=== PATIENT | male | born 1995 | race African-American/Black ===

== ENCOUNTER 2025-05-24 03:46 | Inpatient (IN) | payer MEDICAID ==
[~2025-05-24] VITALS: Ht 175.3 cm; Wt 64.4 kg
[2025-05-24] MEDS ORDERED: ZOLPIDEM TARTRATE 10 MG TABLET PO PRN (04:15)
[2025-05-25 17:48] VITALS: BP 129/79; PULSE 66; RESP 16; TEMP 98.5; O2SAT 100
[2025-05-25 20:50] VITALS: RESP 16
[2025-05-25] MEDS ORDERED: DOCUSATE SODIUM 100 MG CAPSULE PO PRN (23:15)
[2025-05-25] MEDS ORDERED: OMEPRAZOLE 20 MG CAPSULE PO PRN (23:15)
[2025-05-25] MEDS ORDERED: MAG HYDROX/ALUMINUM HYD/SIMETH ES 30 ML SUSPENSION UDCUP PO PRN (23:15)
[2025-05-25] MEDS ORDERED: BACITRACIN 28 GM OINTMENT TP PRN (23:15)
[2025-05-25] MEDS ORDERED: ALBUTEROL SULFATE HFA 90 MCG/PUFF 8 GM INHALER IH PRN (23:15)
[2025-05-25] MEDS ORDERED: PETROLATUM,WHITE 28 GM JELLY TP PRN (23:15)
[2025-05-25] MEDS ORDERED: MAGNESIUM HYDROXIDE SUSPENSION 30 ML UDCUP PO PRN (23:15)
[2025-05-25] MEDS ORDERED: ACETAMINOPHEN 325 MG TABLET PO PRN (23:15)
[2025-05-25] MEDS ORDERED: IBUPROFEN 600 MG TABLET PO PRN (23:15)
[2025-05-25] MEDS ORDERED: ONDANSETRON 4 MG TABLET PO PRN (23:15)
[2025-05-25] MEDS ORDERED: BENZOCAINE/MENTHOL [CEPACOL] LOZENGE PO PRN (23:15)
[2025-05-26 08:09] VITALS: RESP 18
[2025-05-26] MEDS: SERTRALINE HCL 50 MG TABLET PO SCH (10:08)
[2025-05-26 20:11] VITALS: RESP 18
[2025-05-27] MEDS: LOPERAMIDE HCL 2 MG CAPSULE PO PRN (06:25)
[2025-05-27 08:10] VITALS: RESP 16
[2025-05-27 08:20] LABS: PLATELET COUNT (AUTO) 152 K/uL (150-450); RED BLOOD CELL COUNT(AUTO) 4.86 MIL/uL (4.50-5.90); RED CELL DISTRIBUTION WIDTH 14.0 % (11.5-14.5); WHITE BLOOD COUNT (AUTO) 2.8 K/uL (4.5-11.0)
[2025-05-27 08:41] LABS: ASPARTATE AMINOTRANSFERASE 15 U/L (15-37); CALCIUM, TOTAL 9.7 mg/dL (8.8-10.5); CHOL/HDL RATIO 3.7 (4.2-7.3); CREATININE 0.91 mg/dL (0.60-1.30); GLOMERULAR FILTR. RATE CALC > 60 mL/min (>60); GLUCOSE,RANDOM 118 mg/dL (70-110); LDL CHOL (CALC.) 110 mg/dL (0-130); PHOSPHORUS 3.6 mg/dL (2.5-4.9); SODIUM SERUM 143 mmol/L (136-145); TOTAL PROTEIN, SERUM 8.4 g/dL (6.4-8.2); UREA NITROGEN, BLOOD 11 mg/dL (7-18)
[2025-05-27 20:25] VITALS: RESP 17
[2025-05-28 08:22] VITALS: RESP 18
[2025-05-28 20:06] VITALS: RESP 18
[2025-05-29 08:12] VITALS: RESP 17
[2025-05-29] MEDS ORDERED: SERT-439 PO (10:58)
== END 2025-05-29 15:46 | disposition home or self-care (01) | DRG 751 ==
LOC: B3A 05-25 16:25
PROVIDERS: ADMIT Psychiatry & Neurology Psychiatry; ATTEND Psychiatry & Neurology Psychiatry
PROC: GZHZZZZ Group Psychotherapy (ICD-10-PCS; principal; 2025-05-26)
DX: F33.3 Major depressive disorder, recurrent, severe with psychotic symptoms (principal); R45.851 Suicidal ideations; F12.90 Cannabis use, unspecified, uncomplicated; F41.9 Anxiety disorder, unspecified; G47.00 Insomnia, unspecified; K59.00 Constipation, unspecified; Z59.00 Homelessness unspecified; Z79.899 Other long term (current) drug therapy
CPT/HCPCS: 80053; 80061; 83036; 83735; 84100; 84443; 85025